=== PATIENT | female | born 1985 | race Caucasian/White ===

== ENCOUNTER 2020-10-23 10:22 | Emergency (ER) | payer OTHER, SELFPAY ==
[2020-10-23 10:42] VITALS: BP 122/77; PULSE 112; RESP 16; TEMP 37.3; O2SAT 98; BMI 23.1
--- NOTE | 2020-10-23 11:14 | ED_ITS ---
HPI - Head Injury General: Chief complaint: Head Injury Stated complaint: Fall/Head Injury Time Seen by Provider: 10/23/20 11:14 Source: patient Mode of arrival: ambulatory Limitations: no limitations History of Present Illness: HPI Narrative: Mrs. Butler is a nice 35-year-old female who comes in complaining of headache, neck pain and facial pain after suffering a fall 3 days ago. She stated she was at home when she tripped and fell landing on her head and face. Since that time she is had progressive more swelling and pain with nausea. States the symptoms are just getting progressively worse. She denies being on blood thinners, antiplatelet agents or anything else. Bright lights and loud sounds make her symptoms worse. Patient states she has never had a headache quite like this before. At the time she was dazed but she does not think she had loss of consciousness. Patient's not tried anything for this other than Tylenol at home which she said helped minimally. Associated symptoms: Reports nausea and neck pain; Deny confusion, syncope, vertigo or vomiting Review of Systems Const: Denies: fever(s), chills, body aches, fatigue, malaise or diaphoresis Eyes: Denies: change in vision, blurry vision, photophobia, eye discomfort, eye discharge, eye redness or yellow eyes ENMT: Denies: throat pain, odynophagia, hoarseness, swelling of lips/tongue, ear or mastoid pain, ear discharge, change in hearing or nasal discharge Card: Denies: chest pain, palpitations, irregular heart rhythm, edema, lightheadedness, syncope, pre-syncope, dyspnea on exertion or orthopnea Resp: Denies: dyspnea, productive cough, non-productive cough, wheezing, hemoptysis or chest congestion GI: Reports: nausea; Denies: abdominal pain, vomiting, hematemesis, coffee ground emesis, heartburn, diarrhea, constipation, GI cramping, hematochezia or melena : Denies: flank pain, dysuria, urinary frequency, urinary urgency or hematuria Musc: Reports: neck pain; Denies: back pain, extremity pain, extremity swelling, joint pain, joint swelling, joint redness, joint warmth or joint stiffness Skin/Breast: Denies: rash, pruritus, erythema, skin pain or skin tenderness Neuro: Reports: headache(s); Denies: numbness in extremities, weakness in extremities, sensory changes, lack of coordination, difficulty walking, dizziness, vertigo, confusion, Slurred speech present or seizure-like activity Angelito/Lymph: Denies: easy bruising, easy bleeding, petechiae, purpura or enlarged lymph nodes All/Imm: Denies: urticaria, throat swelling, tongue swelling, facial swelling or acute wheezing PFSH ED PFSH: Medical History No pertinent past medical history Surgical History History of tonsillectomy and adenoidectomy As a child Family History Mother Hypertension Heart disease Hyperlipidemia Family history of thyroid problem Grandmother Diabetes Maternal grandmother Heart disease Maternal grandmother Stroke Maternal grandmother Family/Other Breast cancer Paternal great aunt Social History Smoking and tobacco status: never smoked Alcohol intake: current Female Reproductive History: Date of last menstrual period: 09/30/20 Physical Exam Const: COMMON NORMALS: no acute distress, patient oriented x3, no limitations and alert GENERAL APPEARANCE: cooperative HENMT: COMMON NORMALS: external ears normal, EAC's normal and Normal external nose present HEAD & SCALP: normal to inspection and other (Swelling and bruising noted to forehead, upper face and scalp. Areas are a) FACE & SINUS: normal facial exam and face symmetric NOSE: Normal external nose present and Normal nares present EXTERNAL EAR: Yes external ears normal EXTERNAL AUDITORY CANAL: EAC's normal MOUTH: Normal oral and palatal mucosa present, lip normal and tongue normal Eye: COMMON NORMALS: Equal, round and reactive pupils present and conjunctivae normal GENERAL EYE: appearance normal, both eyes and all related structures ALIGNMENT: Yes alignment normal PERIORBITAL: periorbital findings normal EYELID: eyelids normal CONJUNCTIVA: Yes conjunctivae normal SCLERA: sclerae normal PUPIL: Yes Equal, round and reactive pupils present Neck/C-Spine: COMMON NORMALS: full ROM, no lymphadenopathy, supple, no meningeal signs and no JVD GENERAL: Yes normal visual inspection and Yes trachea midline Chest: COMMONS NORMALS: normal inspection of the chest and normal palpation of entire chest wall Resp: COMMON NORMALS: normal respiratory effort, No retractions, No use of accessory muscles and clear to auscultation bilaterally EFFORT & INSPECTION: Yes able to speak in complete sentences and Yes symmetric chest movement AUSCULTATION: clear to auscultation bilaterally, no crackles, no rales, no rhonchi and no wheezes Cardio: COMMON NORMALS: no JVD, regular rate, regular rhythm, S1 normal heart sound present and S2 normal heart sound present RATE: regular rate RHYTHM: regular rhythm HEART SOUNDS: S1 normal heart sound present, S2 normal heart sound present, no click, no gallops, no murmurs and no rubs GI: COMMON NORMALS: Soft to palpation and No hepatosplenomegaly present PALPATION: Yes Soft to palpation, No Tenderness to palpation present (GI), No Guarding due to palpation present (GI), No Rigid due to palpation, Yes No hepatosplenomegaly present, No Hernia present, No Palpable mass present and No Pulsatile mass present : COMMON NORMALS: Yes no CVA tenderness BLADDER/KIDNEY EXAM: Yes no CVA tenderness EXTERNAL FEMALE EXAM: No Hernia present Back/Pelvis: COMMON NORMALS: no CVA tenderness, thoracic and lumbar spine normal to inspection, no thoracic nor lumbar tenderness and thoraco-lumbar ROM normal Extremity: COMMON NORMALS: normal to inspection, full ROM, capillary refill normal, no joint enlargement, no clubbing, cyanosis or edema and no calf tenderness Neuro: COMMON NORMALS: patient oriented x3, CN's II-XII intact bilaterally, moves all extremities, no focal motor deficits and no sensory deficits noted SENSORIUM/ORIENTATION: Yes alert MENINGEAL SIGNS: Yes no meningeal signs SPEECH: speech normal Psych: COMMON NORMALS: mental status grossly normal, Normal thought process present, cooperative, normal affect, speech normal and activity/motor behavior normal SPEECH: Yes normal speech THOUGHT PROCESS: Normal thought process present Skin: COMMON NORMALS: no rashes or lesions noted, turgor normal, no jaundice, no petechiae and no mottling GENERAL SKIN EXAM: no rashes or lesions noted and turgor normal Course Vital Signs: Vital signs: Vital Signs Temperature 99.1 F 10/23/20 10:42 Pulse Rate 112 H 10/23/20 10:42 Respiratory Rate 16 10/23/20 10:42 Blood Pressure 122/77 10/23/20 10:42 Pulse Oximetry 98 10/23/20 11:41 MDM - Head Injury MDM Narrative: Medical decision making narrative: Mrs. Butler is a nice 35-year-old female who comes in with a concern of continued headache and nauseousness after a head injury. CT scan revealed no evidence of cervical spine fracture, intracranial hemorrhage or bruising and no facial fractures. Patient is very satisfied and encouraged to hear this. She will continue take Tylenol Motrin at home. He states she has any questions or concerns she will return here or follow-up for further work-up. Imaging Data^: CT Head: Radiologist's impression: [employer] [address] [facility] [place] [address] CT Scan Report Signed Patient: Christelle Butler Unit #: [id number] : 1985 Age/Sex: 35 / F ADM Date: 10/23/20 Loc: ER Room/Bed: Attending Dr: Ordering Provider/Ordering MD: Amanda Osei DO Date of Service: 10/23/20 Procedure(s): CT head wo con* [id number] Accession Number(s): [id number] Report Number: [id number] WS: [id number] CT HEAD NONCONTRAST HISTORY: Fall/injury TECHNIQUE: Contiguous axial imaging performed through the brain in 2.5 mm imaging. Bone and soft tissue windows. Sagittal and coronal reformats reviewed. All CT scans at [facility] use at least one of these dose optimization techniques: automated exposure control; mA and/or kV adjustment per patient size (includes targeted exams where dose is matched to clinical indication); or iterative reconstruction. DLP: 746.29 mGy.cm COMPARISON: None available. No acute intracranial hemorrhage, midline shift or mass effect. No atrophy or prior infarcts or herniation. Ventricles: Normal size with no hydrocephalus. Paranasal sinuses: As visualized are clear. Mastoid air cells: Well pneumatized. Calvarium and scalp: Skull is intact with no soft tissue edema or swelling. CT/CT head wo con* [id number] IMPRESSION: Negative head CT. Dictated By: Pily Bowers DO Signed By: Pily Bowers DO Signed Date/Time: 10/23/20 1142 DD/ 1140 CT facial bone: Radiologist's impression: [facility] [place] [address] CT Scan Report Signed Patient: Christelle Butler Unit #: [id number] : 1985 Age/Sex: 35 / F ADM Date: 10/23/20 Loc: ER Room/Bed: Attending Dr: Ordering Provider/Ordering MD: Amanda Osei DO Date of Service: 10/23/20 Procedure(s): CT facial bones wo con* [id number] Accession Number(s): [id number] Report Number: [id number] WS: [id number] CT FACIAL BONES HISTORY: Fall/injury TECHNIQUE: Images obtained from the supraorbital location through the mandible. Soft tissue and bone windows are reviewed. Coronal and sagittal reformats have also been submitted. DLP: 714.[address] scans at [facility] use at least one of these dose optimization techniques: automated exposure control; mA and/or kV adjustment per patient size (includes targeted exams where dose is matched to clinical indication); or iterative reconstruction. COMPARISON: None available. No facial bone fractures are identified. Nasal bones and zygomatic arches are intact. Orbits and globes are normal. No significant amount of soft tissue edema or laceration. CT/CT facial bones wo con* [id number] IMPRESSION: No facial bone fractures. Dictated By: Pily Bowers DO Signed By: Pily Bowers DO Signed Date/Time: 10/23/20 1144 DD/ 1142 CT cervical spine: Radiologist's impression: [employer] [address] [place] [address]. [place] [address] CT Scan Report Signed Patient: Christelle Butlerit #: [id number] : 1985Acct#:[id number] Age/Sex: 35 / FADM Date: 10/23/20 Loc: ERRoom/Bed: Attending Dr: Ordering Provider/Ordering MD: Amanda Osei DO Date of Service: 10/23/20 Procedure(s): CT cervical spin wo con* [id number] Accession Number(s): [id number] Report Number: [id number] WS: [id number] CT CERVICAL SPINE HISTORY: Fall/injury TECHNIQUE: Contiguous 2.5 mm axial imaging performed through the entire cervical spine. Sagittal and coronal reformats also performed. All CT scans at [facility] use at least one of these dose optimization techniques: automated exposure control; mA and/or kV adjustment per patient size (includes targeted exams where dose is matched to clinical indication); or iterative reconstruction. DLP: 497.41 mGy.cm COMPARISON: None available. Straightening of the normal cervical lordosis. No fractures identified. Craniocervical junction is normal. Lateral masses of C1 and C2 are aligned. Odontoid is intact. No cervical spine fractures are identified. Lung apices are clear. No cervical chain lymph nodes. CT/CT cervical spin wo con* [id number] IMPRESSION: No cervical spine fractures. Dictated By:Pily Bowers DO Signed By:Pily Bowers DOSigned Date/Time:10/23/20 1149 DD/ 1144 Discharge Plan Discharge Patient Disposition: Home Clinical Impression: Concussion without loss of consciousness Qualifiers: Encounter type: initial encounter Qualified Code(s): S06.0X0A - Concussion without loss of consciousness, initial encounter Contusion Qualifiers: Encounter type: initial encounter Contusion area: head Contusion of head detail: scalp Qualified Code(s): S00.03XA - Contusion of scalp, initial encounter Condition: Stable Prescriptions: No Action bismuth subsalicylate [Pepto-Bismol] 262 mg/15 mL suspension 524 mg PO Q1H PRNRF: 0 metronidazole 500 mg tablet 500 mg PO BID Qty: 14 RF: 0 Discharge Orders: Discharge ED (Routine); Ordered 10/23/20 Ordered By: Amanda Osei Referrals: Lupillo Lopez MD [Primary Care Provider] - 4-7 days Discharge Diet: Advance as tolerated Discharge Activity: Resume usual activity Patient Instructions: Concussion (ED), Contusion in Adults (ED) Activity Restrictions/Additional Instructions: Please return to the ER immediately for any of the signs or symptoms listed on your discharge instruction sheets, worsening/changing of your symptoms, you are not getting better as quickly as expected, or for ANY other cause or concerns. Coding Level of Care Code ED Beauty Specialist for Chg Fwd Exam Comprehensive
--- NOTE | 2020-10-23 11:20 | CT_ITS ---
WS: [id number] CT HEAD NONCONTRAST HISTORY: Fall/injury TECHNIQUE: Contiguous axial imaging performed through the brain in 2.5 mm imaging. Bone and soft tiss ue windows. Sagittal and coronal reformats reviewed. All CT scans at [facility] use at ast one of these dose optimization techniques: automated exposure control; mA and/or kV adjustment pe r patient size (includes targeted exams where dose is matched to clinical indication); or iterative r econstruction. DLP: 746.29 mGy.cm COMPARISON: None available. No acute intracranial hemorrhage, midline shift or mass effect. No atrophy or prior infarcts or herniation. Ventricles: Normal size with no hydrocephalus. Paranasal sinuses: As visualized are clear. Mastoid air cells: Well pneumatized. Calvarium and scalp: Skull is intact with no soft tissue edema or swelling. CT/CT head wo con* [id number] IMPRESSION: Negative head CT.
--- NOTE | 2020-10-23 11:20 | CT_ITS ---
WS: [id number] CT CERVICAL SPINE HISTORY: Fall/injury TECHNIQUE: Contiguous 2.5 mm axial imaging performed through the entire cervical spine. Sagittal and coronal reformats also performed. All CT scans at [facility] use at least one of these do se optimization techniques: automated exposure control; mA and/or kV adjustment per patient size (inc ludes targeted exams where dose is matched to clinical indication); or iterative reconstruction. DLP: 497.41 mGy.cm COMPARISON: None available. Straightening of the normal cervical lordosis. No fractures identified. Craniocervical junction is no rmal. Lateral masses of C1 and C2 are aligned. Odontoid is intact. No cervical spine fractures are identified. Lung apices are clear. No cervical chain lymph nodes. CT/CT cervical spin wo con* [id number] IMPRESSION: No cervical spine fractures.
--- NOTE | 2020-10-23 11:20 | CT_ITS ---
WS: [id number] CT FACIAL BONES HISTORY: Fall/injury TECHNIQUE: Images obtained from the supraorbital location through the mandible. Soft tissue and bone windows are reviewed. Coronal and sagittal reformats have also been submitted. DLP: 714.[address] scans at [facility] use at least one of these dose optimization techniques: automat ed exposure control; mA and/or kV adjustment per patient size (includes targeted exams where dose is matched to clinical indication); or iterative reconstruction. COMPARISON: None available. No facial bone fractures are identified. Nasal bones and zygomatic arches are intact. Orbits and glob es are normal. No significant amount of soft tissue edema or laceration. CT/CT facial bones wo con* [id number] IMPRESSION: No facial bone fractures.
[2020-10-23 11:41] VITALS: O2SAT 98
[2020-10-23 12:10] VITALS: BP 117/75; PULSE 84; RESP 18; O2SAT 98
== END 2020-10-23 12:10 | disposition home or self-care (01) ==
PROVIDERS: Emergency Provider Emergency Medicine; PCP Family Medicine
DX: S06.0X0A Concussion without loss of consciousness, initial encounter (principal); S00.03XA Contusion of scalp, initial encounter; W01.0XXA Fall on same level from slipping, tripping and stumbling without subsequent striking against object, initial encounter
CPT/HCPCS: 12345; 70450; 70486; 72125; 99281; 99283

== ENCOUNTER 2022-01-11 11:59 | Emergency (ER) | payer OTHER, SELFPAY ==
[2022-01-11 12:08] VITALS: BP 151/85; PULSE 112; RESP 16; TEMP 36.8; O2SAT 99; BMI 24.9
--- NOTE | 2022-01-11 13:06 | CT_ITS ---
WS: [id number] CT HEAD NONCONTRAST HISTORY: headache TECHNIQUE: Contiguous axial imaging performed through the brain in 2.5 mm imaging. Bone and soft tiss ue windows. Sagittal and coronal reformats reviewed. All CT scans at [facility] use at least one of these dose optimization techniques: automated exposure control; mA and/or kV adjustment per pa tient size (includes targeted exams where dose is matched to clinical indication); or iterative recon struction. DLP: 819.6 mGy.cm COMPARISON: None available. No acute intracranial hemorrhage, midline shift or mass effect. No atrophy or prior infarcts or herniation. Ventricles: Normal size with no hydrocephalus. Paranasal sinuses: As visualized are clear. Mastoid air cells: Well pneumatized. Calvarium and scalp: Skull is intact with no soft tissue edema or swelling. CT/CT head wo con* [id number] IMPRESSION: Negative head CT.
[2022-01-11 13:10] VITALS: BP 146/86; PULSE 95; RESP 16; O2SAT 99
--- NOTE | 2022-01-11 13:15 | ED_ITS ---
HPI - Headache General: Chief Complaint: Headache Stated Complaint: Sharp pains in left side of head, on and off Time Seen by Provider: 01/11/22 12:12 Source: patient Mode of arrival: ambulatory History of Present Illness: 36-year-old female presents emergency room complaining of sharp pain in her head on the left side of her head in the parietal area just above the ear. She states this began today and it comes and goes sharp pain that lasts for a few seconds and then resolves during the time I was with her it happened at least 3 times. She admits to being little anxious about it because last year she had a mild concussion. Symptoms began this morning around 7 AM she has not had any recent falls injuries car accidents anything of that nature. She will often get frontal headaches but these feel significantly different and that she is not noticed any skin rash. She does have any ear pain or tinnitus does not radiate from the ear she not had any tearing of the eye on the left side she is not had any difficulty with swallowing or dribbling she has not had any difficulty with taste or smell. She does not have any pain in the occipital area or in the eye. She has not noticed anything that exacerbates or relieves her symptoms. MD elicited complaint: headache Onset (ago): hour(s) Time: 07:00 Onset description: suddenly Location: left and parietal Severity: moderate Quality & Timing: sharp and intermittent Exacerbating factors: none Relieving factors: nothing Context: occurred at rest Associated symptoms: Deny chest pain, confusion, cough, diaphoresis, eye pain, eye redness, fever(s), lightheadedness, loss of vision, malaise, nausea, neck stiffness, numbness, paresthesias, photophobia, pre-syncope, rash, seizures, short of breath, sound sensitivity, syncope, vomiting or weakness Treatments prior to arrival: none Review of Systems Const: Denies: fever(s), malaise or diaphoresis ENMT: Denies: throat pain, ear or mastoid pain, nasal discharge or nasal congestion Card: Denies: chest pain, lightheadedness, syncope or pre-syncope Resp: Denies: dyspnea, productive cough or non-productive cough GI: Denies: nausea or vomiting : Denies: flank pain, difficulty voiding, dysuria, urinary frequency or urinary urgency Skin/Breast: Denies: rash Neuro: Denies: confusion PFSH ED PFSH: Medical History No pertinent past medical history Surgical History History of tonsillectomy and adenoidectomy As a child Family History Mother Hypertension Heart disease Hyperlipidemia Family history of thyroid problem Grandmother Diabetes Maternal grandmother Heart disease Maternal grandmother Stroke Maternal grandmother Family/Other Breast cancer Paternal great aunt Social History Smoking and tobacco status: never smoked Alcohol intake: current Female Reproductive History: Date of last menstrual period: 09/30/20 Physical Exam Const: COMMON NORMALS: no acute distress GENERAL APPEARANCE: cooperative an d comfortable ORIENTATION/CONSCIOUSNESS: Yes awake, Yes oriented to person, Yes oriented to place and Yes oriented to time HENMT: COMMON NORMALS: normocephalic, atraumatic, hearing grossly normal bilaterally, external ears normal, EAC's normal, TM's normal bilaterally, Normal nasal mucous membranes and turbinates present, moist oral mucous membranes and oropharynx normal HEAD & SCALP: normocephalic and atraumatic NOSE: Normal nasal mucous membranes and turbinates present EXTERNAL EAR: Yes external ears normal EXTERNAL AUDITORY CANAL: EAC's normal TYMPANIC MEMBRANE: TM's normal bilaterally Eye: COMMON NORMALS: Equal, round and reactive pupils present, EOMs intact bilaterally, conjunctivae normal and no scleral icterus CONJUNCTIVA: Yes conjunctivae normal PUPIL: Yes Equal, round and reactive pupils present DIRECT OPHTHALMOSCOPY: No photophobia Neck/C-Spine: COMMON NORMALS: full ROM, no lymphadenopathy, supple and no JVD Lymph: LYMPHATIC: no lymphadenopathy noted and no lymphedema noted Resp: COMMON NORMALS: normal respiratory effort, No retractions, No use of accessory muscles and clear to auscultation bilaterally AUSCULTATION: clear to auscultation bilaterally Cardio: COMMON NORMALS: no JVD, regular rate, regular rhythm and No murmurs present (Cardio) RATE: regular rate RHYTHM: regular rhythm Extremity: COMMON NORMALS: normal to inspection, capillary refill normal, no clubbing, cyanosis or edema, no calf tenderness and no pedal edema Neuro: SENSORIUM/ORIENTATION: Yes oriented to person, Yes oriented to place and Yes oriented to time Skin: COMMON NORMALS: no rashes or lesions noted GENERAL SKIN EXAM: no rashes or lesions noted Course Vital Signs: Vital signs: Vital Signs Temperature 98.2 F 01/11/22 12:08 Pulse Rate 95 01/11/22 13:10 Respiratory Rate 16 01/11/22 13:10 Blood Pressure 146/86 01/11/22 14:43 Pulse Oximetry 97 01/11/22 14:43 MDM - Headache Medical Decision Making Neurologically patient is fully intact. She had these odd very sharp pains in the parietal area that come and go randomly. She has no sign of varicella- zoster. Possible she may be an early Duran's palsy but she has no other symptoms remainder the work-up is negative NIH score is 0 both initially and on repeat. Discussed findings with the patient recommended discharge home we will put her on some prednisone. Additionally put her on amitriptyline 25 nightly give her hydrocodone to use as needed if she has persistent persistent symptoms follow-up with her primary care doc I can refer as appropriate. Medical Records I reviewed the patient's medical records. Lab Data I reviewed the patient's lab results. : 01/11/22 13:27 01/11/22 13:[address] 01/11/22 13:06 IMPRESSION: Negative head CT. Laboratory Results WBC 4.5 10^3/uL (4.0-10.0) 01/11/22 13:27 RBC 5.31 10^6/uL (4.1-5.3) H 01/11/22 13:27 Hgb 15.7 g/dL (11.5-15.3) H 01/11/22 13:27 Hct 48.0 % (37.0-47.0) H 01/11/22 13:27 MCV 90.4 fl (81-99) 01/11/22 13:27 MCH 29.6 pg (28.0-34.0) 01/11/22 13:27 MCHC 32.7 g/dL (30.0-36.0) 01/11/22 13:27 RDW 12.5 % (12.1-15.1) 01/11/22 13:27 Plt Count 360 10^3/cmm (130-400) 01/11/22 13:27 MPV 9.8 fL (7.4-10.4) 01/11/22 13:27 Neut % (Auto) 48.4 % 01/11/22 13: Lymph % (Auto) 36.0 % 01/11/22 13:27 Butts % (Auto) 12.3 % 01/11/22 13: Eos % (Auto) 2.0 % 01/11/22 13:27 Baso % (Auto) 1.1 % 01/11/22 13: Neut # (Auto) 2.16 10^3/uL (1.8-7.7) 01/11/22 13: Lymph # (Auto) 1.6 10^3/uL (0.8-4.8) 01/11/22 13: Butts # (Auto) 0.6 10^3/uL (0.2-0.9) 01/11/22 13: Eos # (Auto) 0.1 10^3/uL (0.0-0.8) 01/11/22 13: Baso # (Auto) 0.1 10^3/uL (0.0-0.1) 01/11/22 13: Nucleated RBC % (auto) 0 % 01/11/22 13: Nucleated RBCs # 0.0 /100WBC 01/11/22 13:27 Sodium 139 mmol/L (136-145) 01/11/22 13:27 Potassium 4.2 mmol/L (3.5-5.1) 01/11/22 13:27 Chloride 102 mmol/L (98-107) 01/11/22 13:27 Carbon Dioxide 26 mmol/L (22-29) 01/11/22 13:27 Anion Gap 15.2 (5-19) 01/11/22 13:27 BUN 12 mg/dL (6-20) 01/11/22 13:27 Creatinine 0.8 mg/dL (0.5-0.9) 01/11/22 13:27 GFR Calculation 82.1 mL/min (90-130) L 01/11/22 13:27 Glucose 89 mg/dL (65-115) 03/11/22 13:27 Calculated Osmolality 287 mOsm/kg (285-295) 01/11/22 13:27 Calcium 9.0 mg/dL (8.5-10.5) 01/11/22 13:27 Discharge Plan Discharge Patient Disposition: Home Clinical Impression: Headache Condition: Stable Prescriptions: New amitriptyline 25 mg tablet 25 mg PO DAILY Qty: 30 0RF prednisone 20 mg tablet 20 mg PO BID 5 Days Qty: 10 0RF hydrocodone-acetaminophen 5-325 mg tablet 1 tab PO Q6H PRN (Reason: pain) Qty: 15 0RF No Action bismuth subsalicylate [Pepto-Bismol] 262 mg/15 mL suspension 524 mg PO Q1H PRN0RF metronidazole 500 mg tablet 500 mg PO BID Qty: 14 0RF metronidazole [Flagyl] 500 mg tablet 500 mg PO BID Qty: 14 0RF Discharge Orders: Discharge ED (Routine); Ordered 01/11/22 Ordered By: Von Flaherty Referrals: Lupillo Lopez MD [Primary Care Provider] - Discharge Diet: Usual diet Discharge Activity: Increase activity as tolerated Patient Instructions: Opioid Safety Activity Restrictions/Additional Instructions: If not improving over the next several days follow-up with primary care for further evaluation. contract project manager will make arrangements for you to establish with a primary care physician Coding Level of Care Code ED Phd Internship for Isra Shankar Exam Comprehensive NIH stroke score NIHSS Level Of Consciousness - 1a: 0 Level Of Consciousness Questions - 1b: Both Correct Level Of Consciousness Commands - 1c: Both Correct Best Gaze - 2: Normal Visual Lees - 3: No Visual Loss Facial Palsy - 4: Normal Motor Arm Right - 5: No Drift Motor Arm Left - 5: No Drift Motor Leg Right - 6: No Drift Motor Leg Left - 6: No Drift Limb Ataxia - 7: Absent Sensory - 8: Normal Best Language - 9: No Aphasia Dysarthia - 10: Normal Extinction And Inattention - 11: 0 Score Total Score: 0
[2022-01-11] MEDS: acetaminophen 1,000 MG/100 ML PIGGYBACK 400 MG IV (13:18)
[2022-01-11] MEDS: ketorolac 30 mg/mL INJ IVP (13:19)
[2022-01-11] MEDS: promethazine 25 mg/mL SDV 1 mL IM (13:20)
[2022-01-11 13:39] LABS: Basophils # 0.1 10^3/uL (0.0-0.1); Basophils % 1.1 %; Eosinophils # 0.1 10^3/uL (0.0-0.8); Hemoglobin 15.7 g/dL (11.5-15.3); Lymphocytes # 1.6 10^3/uL (0.8-4.8); Mean Corpuscular HGB Conc 32.7 g/dL (30.0-36.0); Mean Corpuscular Hemoglobin 29.6 pg (28.0-34.0); Mean Corpuscular Volume 90.4 fl (81-99); Mean Platelet Volume 9.8 fL (7.4-10.4); Monocytes # 0.6 10^3/uL (0.2-0.9); Monocytes % 12.3 %; Neutrophils # 2.16 10^3/uL (1.8-7.7); Neutrophils % 48.4 %; Nucleated Red Blood Cells % 0 %; Platelet Count 360 10^3/cmm (130-400); Red Blood Count 5.31 10^6/uL (4.1-5.3); Red Cell Distribution Width 12.5 % (12.1-15.1); White Blood Count 4.5 10^3/uL (4.0-10.0)
[2022-01-11 14:02] LABS: Anion Gap 15.2 (5-19); Blood Urea Nitrogen 12 mg/dL (6-20); Carbon Dioxide 26 mmol/L (22-29); Chloride 102 mmol/L (98-107); Glomerular Filtration Rate 82.1 mL/min (90-130); Glucose 89 mg/dL (65-115); Osmolality Calculated 287 mOsm/kg (285-295); Potassium 4.2 mmol/L (3.5-5.1); Sodium 139 mmol/L (136-145)
[2022-01-11 14:43] VITALS: BP 146/86; O2SAT 97
== END 2022-01-11 14:57 | disposition home or self-care (01) ==
PROVIDERS: Emergency Provider Family Medicine; PCP Family Medicine
DX: R51.9 Headache, unspecified (principal)
CPT/HCPCS: 70450; 80048; 85025; 96372; 96374; 96375; 99284; J1885; J2550

== ENCOUNTER → 2023-08-21 15:28 | Outpatient (BNVA) | payer OTHER, SELFPAY | PROVIDERS: PCP Family Medicine; Visit Provider Nurse Practitioner Women's Health | DX: N92.0 Excessive and frequent menstruation with regular cycle (principal); Z12.4 Encounter for screening for malignant neoplasm of cervix | CPT/HCPCS: 84439; 84443; 85025; 87624 ==

== ENCOUNTER → 2023-08-28 08:46 | Outpatient (BNVA) | payer OTHER, SELFPAY | PROVIDERS: PCP Family Medicine; Visit Provider Nurse Practitioner Women's Health | DX: N92.6 Irregular menstruation, unspecified (principal); N93.0 Postcoital and contact bleeding; R93.89 Abnormal findings on diagnostic imaging of other specified body structures; D25.9 Leiomyoma of uterus, unspecified; N83.201 Unspecified ovarian cyst, right side | CPT/HCPCS: 76830 ==

== ENCOUNTER 2023-09-23 09:51 | Observation (INO) | payer OTHER, SELFPAY ==
--- NOTE | 2023-09-19 13:21 | ANES.PREANE2 ---
Pre-Anesthetic Assessment Height/Weight: Height 1.63 m Operation Date: 09/23/23 12:25 Proposed Procedures p Total vaginal hysterectomy 75459, R10.2,N94.10,N94.6,D25.9(Not Applicable) - Abhilash Klein MD Familial anesthetic complications: None Was Beta Yessenia taken within 24 hours: N/A Was Clonidine taken within 24 hours: N/A Last intake: > 8hrs Social No alcohol and No tobacco Exam alert, oriented x 3, clear to auscultation bilaterally and regular rate & rhythm Airway Mallampati: Class I Dentition: full Anesthetic Plan ASA status: 1 Anesthesia: General Risk of > 500 ml blood loss (7ml/kg in children): No Medications/Allergies Home Medications Medication Instructions Recorded Confirmed Last Taken Type No Known Home Medications 08/21/23 09/19/23 Unknown History Allergies Allergy/AdvReac Type Severity Reaction Status Date / Time No Known Allergies Allergy Verified 09/12/23 09:19 PFS Anesthesia Medical History Anxiety and depression not on medication; has never been on medication No pertinent past medical history neghx:htn,dm,thyroid,dvt/pe PCP: Jessica (has not seen in many years) Surgical History History of tonsillectomy and adenoidectomy As a child Family History Mother Hypertension Heart disease Hyperlipidemia Family history of thyroid problem Grandmother Diabetes Maternal grandmother Heart disease Maternal grandmother Stroke Maternal grandmother Family/Other Breast cancer Paternal great aunt Data Anesthesia Cardiac Studies: No Data to Display
[2023-09-23] VITALS (19 sets, daily range): BP systolic 93–139; BP diastolic 45–88; PULSE 59–104; RESP 12–24; TEMP 36.2–37.1; O2SAT 97–100
[2023-09-23] MEDS: sodium chloride 0.9% 500 ML IV (06:48)
[2023-09-23] MEDS: scopolamine 1.5 Patch 1 PATCH TRANSDERMA (06:52)
[2023-09-23 07:09] LABS: Basophils # 0.1 10^3/uL (0.0-0.1); Basophils % 0.9 %; Eosinophils # 0.3 10^3/uL (0.0-0.8); Eosinophils % 5.5 %; Hematocrit 41.2 % (36-47); Lymphocytes # 1.8 10^3/uL (0.8-4.8); Lymphocytes % 33.2 %; Mean Corpuscular HGB Conc 34.2 g/dL (30-55); Mean Corpuscular Hemoglobin 29.7 pg (27-33); Mean Corpuscular Volume 86.9 fl (85-98); Mean Platelet Volume 9.6 fL (7.4-10.4); Monocytes # 0.6 10^3/uL (0.2-0.9); Monocytes % 10.8 %; Neutrophils # 2.71 10^3/uL (1.8-7.7); Neutrophils % 49.4 %; Nucleated Red Blood Cells % 0 %; Platelet Count 336 10^3/cmm (157-399); Red Blood Count 4.74 10^6/uL (3.85-5.65); Red Cell Distribution Width 12.2 % (12.1-15.1); White Blood Count 5.48 10^3/uL (3.29-11.43)
[2023-09-23 07:26] LABS: Alanine Aminotransferase 16 U/L (0-33); Albumin Level 4.5 g/dL (3.5-5.2); Alkaline Phosphatase 66 U/L (35-105); Anion Gap 16.6 (5-19); Aspartate Amino Transferase 15 U/L (0-32); Blood Urea Nitrogen 13 mg/dL (6-20); Calcium 9.1 mg/dL (8.5-10.5); Carbon Dioxide 21 mmol/L (22-29); Chloride 103 mmol/L (98-107); Globulin 3.2 g/dL (1.3-4.6); Glomerular Filtration Rate 81.2 mL/min (90-130); Glucose 98 mg/dL (65-115); Osmolality Calculated 282 mOsm/kg (285-295); Potassium 4.6 mmol/L (3.5-5.1); Sodium 136 mmol/L (136-145); Total Bilirubin 0.5 mg/dL (0.15-1.2); Total Protein 7.7 g/dL (6.6-8.7)
--- NOTE | 2023-09-23 07:29 | W.PM.OPSUD ---
Surgery/Procedure H&P Update DATE OF PROCEDURE: September 23, 2023 DATE H&P PERFORMED: 09/12/23 H&P UPDATE INFORMATION: I have reviewed H&P completed within last 30 days, I have examined patient prior to procedure and No changes to prior documentation PREOP DIAGNOSIS: Abnormal uterine bleeding, uterine fibroid, dysmenorrhea PLANNED PROCEDURE: Operation Date: 09/23/23 08:00 Proposed Procedures p Total vaginal hysterectomy 93494, R10.2,N94.10,N94.6,D25.9(Not Applicable) - Abhilash Klein MD
[2023-09-23] MEDS: sodium chloride 0.9% 1,000 ML 30 ML IV (07:34)
[2023-09-23 07:40] LABS: Add Urine Microscopic? YES; Bilirubin Urine Neg (Negative); Blood Urine Neg (Negative); Glucose Urine UA Norm (Normal); Ketones Urine Negative (Negative); Leukocyte Esterase Urine 2+ (Negative); Nitrate Urine Positive (Negative); Protein Urine Neg (Negative); Urine Appearance Cloudy (CLEAR); Urine Color Yellow (Yellow); Urobilinogen Urine Neg (Negative); pH Urine 5 (5-7)
[2023-09-23 07:41] LABS: Add Urine Culture? Yes; Bacteria Urine 3+ /hpf; RBC Urine 0-4 /hpf (0-2); WBC Urine 80-100 /hpf (0-5)
[2023-09-23] MEDS: ceFOXitin 2,000 MG in sodium chloride 0.9% (plus) 50 ML 100 MG IV (07:47)
--- NOTE | 2023-09-23 07:48 | P.ANESUD_ITS ---
Pre-Anesthetic Update Pre-Anesthetic Assessment: Date of Surgery/Procedure: 09/23/23 Preop Kerry gnosis: Abnormal uterine bleeding, uterine fibroid, dysmenorrhea Proposed Procedure: Operation Date: 09/23/23 08:00 Proposed Procedures p Total vaginal hysterectomy 98883, R10.2,N94.10,N94.6,D25.9(Not Applicable) - Abhilash Klein MD Any changes to Pre-Anesthetic Assessment?: No Last Intake: Intake Last Liquid Date 09/22/23 Last Liquid Time 22:00 Last Solid Date 09/22/23 Last Solid Time 19:30 Labs Last 48hrs: Short CBC 09/23/23 Range/Units 06:42 WBC 5.48 (3.29-11.43) 10^ 3/uL Hgb 14.10 (11.27-16.99) g/ dL Hct 41.2 (36-47) % MCV 86.9 (85-98) fl Plt Count 336 (157-399) 10^3/c mm Neut % (Auto) 49.4 % Neut # (Auto) 2.71 (1.8-7.7) 10^3/u L BMP 09/23/23 06:43 Sodium 136 Potassium 4.6 Chloride 103 Carbon Dioxide 21 L BUN 13 Creatinine 0.8 Glucose 98 Calcium 9.1 Liver Function 09/23/23 Range/Units 06:43 Total Bilirubin 0.5 (0.15-1.2) mg/dL AST 15 (0-32) U/L ALT 16 (0-33) U/L Alkaline Phosphata se 66 (35-105) U/L Albumin 4.5 (3.5-5.2) g/dL Urine 09/23/23 Range/Units 06:24 Urine Color Yellow (Yellow) Urine Appearance Cloudy A (CLEAR) Urine pH 5 (5-7) Ur Specific Gravit y 1.010 (1.005-1.030) Urine Protein Neg (Negative) Urine Glucose (UA) Norm (Normal) Urine Ketones Negative (Negative) Urine Nitrate Positive H (Negative) Urine Bilirubin Neg (Negative) Ur Leukocyte Stefany ase 2+ H (Negative) Urine RBC 0-4 H (0-2) /hpf Urine WBC 80-100 H (0-5) /hpf Blood Bank 09/23/23 06:42 Blood Type O Positive Rho(D) Type Rh positive Antibody Screen Negative Vitals: Temperature 97.4 F L 09/23/23 06:39 Temperature Source Temporal Artery S can 09/23/23 06:39 Pulse Rate 104 H 09/23/23 06:39 Respiratory Rate 16 09/23/23 06:39 Blood Pressure 139/88 09/23/23 06:39 Blood Pressure Kaelyn n 105 09/23/23 06:39 Pulse Oximetry 97 09/23/23 06:39 Oxygen Delivery Me thod Room Air 09/23/23 06:39 Exam: Pre-Anes Outpt Exam: alert, oriented x 3, clear to auscultation bilaterally and regular rate & rhythm Cardiac Studies: No Data to Display
[2023-09-23] MEDS: lidocaine-epi 2% 20 mL INJ INJECTION (09:02)
--- NOTE | 2023-09-23 10:04 | PM.OP ---
Operative Report Date of procedure: September 23, 2023 Pre-op diagnosis: Uterine fibroid Heavy menstrual Dysmenorrhea Postcoital bleeding Post-op diagnosis: Same Procedure done: Total vaginal hysterectomy with bilateral salpingectomy Specimens removed/disposition: Uterus Left and right fallopian tube Surgeon: Abhilash Klein MD Estimated blood loss (mL): 150 IV fluids (mL): 1,700 Urine output (mL): 100 Complications: None: Surgery delayed due to instrument tray not having an indicator. Procedure: After informed consent and risks, benefits, indications and alternatives reviewed with the patient was taken to the operating room. The patient was placed in dorsal lithotomy position prepped, and draped in the usual sterile fashion. The pre-procedure timeout verifying the correct patient, procedure, site and side, could not requirements was performed and acknowledge by the OR team. A Harrington catheter was placed. A Bookwalter vaginal retractor was placed into the vagina in usual manner visualize the cervix. Cervix was grasped with a single tooth tenaculum and circumferentially infiltrated with 2% lidocaine with epinephrine. Then cervix was circumferentially incised with bovie and the bladder was dissected off the pubovesical cervical fascia anteriorly with a sponge stick and Metzenbaum scissors. The anterior peritoneal reflection was identified and the anterior cul-de-sac was entered sharply with Metzenbaum scissors. The same procedure was performed posteriorly and a posterior colpotomy was made through the posterior cul-de-sac space without difficulty and the posterior blade of the Bookwalter vaginal retractor was advanced posteriorly into the cul-de-sac. At this time, the left and right uterosacral ligaments were isolated and ligated with 0 Vicryl. The LigaSure device was placed over the uterosacral ligaments on either side and was then used in a serial fashion up through the cardinal ligaments bilaterally cross-clamped, cut, and sealed with the LigaSure device. Finally, the uterine arteries were cross-clamped, cut, sealed and ligated with the LigaSure device. Hemostasis was assured. The broad ligaments were then serially clamped, sealed and cut with the LigaSure device on both sides. Excellent hemostasis was visualized. Both cornua were clamped, sealed and cut with the LigaSure device. Then the pedicles were then suture ligated with excellent hemostasis. The uterus was excised and submitted for pathologic evaluation. No other abnormalities were noted in the pelvic cavity. Then the right side Infundibular ligament was identified. The ureter was confirmed along the pelvic side wall and peristalsis was noted. The LigaSure device was then used to clamp, sealed and transcepted at middistance, again being sure to be clear of the ureter and the fallopian tube was removed. The same process was then repeated on the left side. Good hemostasis was assure on both sides. The peritoneum was then closed in a pursestring fashion with 0 Vicryl suture. The patient was given indigocarmine IV. The vaginal cuff angles were closed with [id number] #0 Vicryl suture on both sides and transfixed with the ipsilateral cardinal and uterosacral ligaments. The remainder of the vaginal cuff was closed with #0 Vicryl in a running locked fashion. At this time, instruments were removed from the vagina at hemostasis assured. Harrington catheter was noted yielding clear odessa urine. The patient was taken out of dorsal lithotomy position and awakened from the general anesthesia. The patient tolerated the procedure well and was taken to the PACU recovery room in a stable condition. Sponge, lap, needle and instruments counts were correct x3.
[2023-09-23] MEDS: HYDROcodone-acetaminophen 5-325 mg Tablet PO ×2 (11:00→22:52)
[2023-09-23] MEDS: dextrose 5%-lactated ringers 1,000 ML 125 ML IV ×2 (11:01→19:05)
--- NOTE | 2023-09-23 13:43 | ANE.PACU2 ---
Inpatient post-anesthesia follow up: Airway intact: Yes Vital signs: Temperature 98.8 F Pulse Rate 74 Respiratory Rate 19 Blood Pressure 113/76 Pulse Oximetry 99 Oxygen Delivery Me thod Room Air Oxygen Flow Rate 6 Fraction of Inspir ed Oxygen Hydration adequate: Yes Nausea and vomiting: No Pain level: 2 Mental status: Baseline
[2023-09-23] MEDS: ketorolac 30 mg/mL INJ IVP ×2 (14:30→20:34)
[2023-09-23] MEDS: docusate sodium 100 mg Capsule PO (17:36)
[2023-09-24] MEDS: ketorolac 30 mg/mL INJ IVP (02:33)
[2023-09-24 05:39] VITALS: BP 107/70; PULSE 74; RESP 16; TEMP 36.9; O2SAT 98
[2023-09-24 05:41] LABS: Hematocrit 32.7 % (36-47); Mean Corpuscular Hemoglobin 29.8 pg (27-33); Mean Corpuscular Volume 90.3 fl (85-98); Mean Platelet Volume 9.7 fL (7.4-10.4); Platelet Count 256 10^3/cmm (157-399); Red Blood Count 3.62 10^6/uL (3.85-5.65); Red Cell Distribution Width 12.5 % (12.1-15.1); White Blood Count 8.56 10^3/uL (3.29-11.43)
[2023-09-24] MEDS: HYDROcodone-acetaminophen 5-325 mg Tablet PO (06:35)
--- NOTE | 2023-09-24 09:02 | P.DS_ITS ---
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 Butler 38-year-old female, with a history of abnormal bleeding, uterine fibroid, dysmenorrhea and postcoital bleeding admitted for planned total vaginal hysterectomy. A total vaginal hysterectomy with bilateral salpingectomy was performed without complications. Overnight observation uneventful. She is afebrile and hemodynamically stable postoperative day 1. Tolerating diet well. Ambulating without difficulty. She was counseled regarding pelvic rest for 6 weeks (no sex, no tampons, no vaginal douches). Return to the emergency room if any fever, increased bleeding or pain. Physical Exam Narrative: GA: Alert and oriented ?3. HEENT: WNL. Heart: Regular rate and rhythm. Lungs: Clear to auscultation bilaterally. Abdomen: Bowel sounds present, minimal tenderness. DIGITAL CONTENT SPECIALIST: Spotting bleeding. Extremities: No edema, no cyanosis, no calves pain. Urinary Catheter Management: [place]: Cath Placed During This Visit: yes, but has since been removed by the nurse Reason for Continuing Indwelling Catheter: Decision to DC Catheter Urinary Catheter Date of Insertion: 09/23/23 Urinary Catheter Time of Insertion: 08:49 Date Urinary Catheter Removed: 09/24/23 Time Urinary Catheter Discontinued: 05:10 History History History 2 Term 2 0 Miscarriages/Ectopic 0 Living Children 2 Discharge Data Studies Completed and Pending Pending at discharge Category Date Time Status Urine Culture Routine Lab 09/23/23 06:24 Received Pathology: Surgical [PTH] Routine Pth 09/23/23 09:38 Received Laboratory Results WBC 8.56 10^3/uL (3.29-11.43) 09/24/23 05:07 RBC 3.62 10^6/uL (3.85-5.65) L 09/24/23 05:07 Hgb 10.80 g/dL (11.27-16.99) L 09/24/23 05:07 Hct 32.7 % (36-47) L 09/24/23 05:07 MCV 90.3 fl (85-98) 09/24/23 05:07 MCH 29.8 pg (27-33) 09/24/23 05:07 MCHC 33.0 g/dL (30-55) 09/24/23 05:07 RDW 12.5 % (12.1-15.1) 09/24/23 05:07 Plt Count 256 10^3/cmm (157-399) 09/24/23 05:07 MPV 9.7 fL (7.4-10.4) 09/24/23 05:07 Neut % (Auto) 49.4 % 09/23/23 06:42 Lymph % (Auto) 33.2 % 09/23/23 06:42 [place] % (Auto) 10.8 % 09/23/23 06:42 Eos % (Auto) 5.5 % 09/23/23 06:42 Baso % (Auto) 0.9 % 09/23/23 06:42 Neut # (Auto) 2.71 10^3/uL (1.8-7.7) 09/23/23 06:42 Lymph # (Auto) 1.8 10^3/uL (0.8-4.8) 09/23/23 06:42 [place] # (Auto) 0.6 10^3/uL (0.2-0.9) 09/23/23 06:42 Eos # (Auto) 0.3 10^3/uL (0.0-0.8) 09/23/23 06:42 Baso # (Auto) 0.1 10^3/uL (0.0-0.1) 09/23/23 06:42 Nucleated RBC % (auto) 0 % 09/23/23 06:42 Nucleated RBCs # 0.0 /100WBC 09/23/23 06:42 Sodium 136 mmol/L (136-145) 09/23/23 06:43 Potassium 4.6 mmol/L (3.5-5.1) 09/23/23 06:43 Chloride 103 mmol/L (98-107) 09/23/23 06:43 Carbon Dioxide 21 mmol/L (22-29) L 09/23/23 06:43 Anion Gap 16.6 (5-19) 09/23/23 06:43 BUN 13 mg/dL (6-20) 09/23/23 06:43 Creatinine 0.8 mg/dL (0.5-0.9) 09/23/23 06:43 GFR Calculation 81.2 mL/min (90-130) L 09/23/23 06:43 Glucose 98 mg/dL (65-115) 09/23/23 06:43 Calculated Osmolality 282 mOsm/kg (285-295) L 09/23/23 06:43 Calcium 9.1 mg/dL (8.5-10.5) 09/23/23 06:43 Total Bilirubin 0.5 mg/dL (0.15-1.2) 09/23/23 06:43 AST 15 U/L (0-32) 09/23/23 06:43 ALT 16 U/L (0-33) 09/23/23 06:43 Alkaline Phosphatase 66 U/L (35-105) 09/23/23 06:43 Total Protein 7.7 g/dL (6.6-8.7) 09/23/23 06:43 Albumin 4.5 g/dL (3.5-5.2) 09/23/23 06:43 Globulin 3.2 g/dL (1.3-4.6) 09/23/23 06:43 Urine Color Yellow (Yellow) 09/23/23 06:24 Urine Appearance Cloudy (CLEAR) A 09/23/23 06:24 Urine pH 5 (5-7) 09/23/23 06:24 Ur Specific [place] 1.010 (1.005-1.030) 09/23/23 06:24 Urine Protein Neg (Negative) 09/23/23 06:24 Urine Glucose (UA) Norm (Normal) 09/23/23 06:24 Urine Ketones Negative (Negative) 09/23/23 06:24 Urine Blood Neg (Negative) 09/23/23 06:24 Urine Nitrate Positive (Negative) H 09/23/23 06:24 Urine Bilirubin Neg (Negative) 09/23/23 06:24 Urine Urobilinogen Neg mg/dL (Negative) 09/23/23 06:24 Ur Leukocyte Esterase 2+ (Negative) H 09/23/23 06:24 Urine RBC 0-4 /hpf (0-2) H 09/23/23 06:24 Urine WBC 80-100 /hpf (0-5) H 09/23/23 06:24 Ur Squamous Epith Cells 5-10 /hpf (0-5) H 09/23/23 06:24 Amorphous Sediment Not Reportable 09/23/23 06:24 Urine Bacteria 3+ /hpf (NONE) H 09/23/23 06:24 Blood Type O Positive 09/23/23 06:42 Rho(D) Type Rh positive 09/23/23 06:42 Antibody Screen Negative 09/23/23 06:42 Vitals Last Vital Signs Temp 98.4 F 09/24/23 05:39 Pulse 74 09/24/23 05:39 Resp 16 09/24/23 05:39 BP 107/70 09/24/23 05:39 Pulse Ox 98 09/24/23 05:39 O2 Del Method Room Air 09/24/23 05:39 O2 Flow Rate 6 09/23/23 10:16 Results Labs OB ([facility]): Blood Type O Positive 09/23/23 Antibody Screen Negative 09/23/23 Hct 32.7 % (36-47) L 09/24/23 Hgb 10.80 g/dL (11.27-16.99) L 09/24/23 Rho(D) Type Rh positive 09/23/23 Plt Count 256 10^3/cmm (157-399) 09/24/23 TSH 1.61 uIU/mL (0.27-4.20) 08/21/23 Free T4 1.25 ng/dL (0.82-1.77) 08/21/23 Micro Urine Specimen 09/23/23 Pap Smear Interpret See note 08/21/23 Discharge Plan Discharge Patient Disposition: Home Condition: Stable Prescriptions: New ibuprofen 800 mg tablet 800 mg PO TID PRN (Reason: pain) Qty: 60 0RF docusate sodium [Colace] 100 mg capsule 100 mg PO BID Qty: 60 0RF acetaminophen 325 mg capsule 325 mg PO Q4H PRN (Reason: fever or pain) Qty: 60 0RF hydrocodone-acetaminophen 5-325 mg tablet 1 tab PO Q4H PRN (Reason: pain) Qty: 30 0RF ferrous sulfate [Iron (ferrous sulfate)] 325 mg (65 mg iron) tablet 325 mg PO BID Qty: 60 0RF Discharge Orders: Discharge Order (Routine); Ordered 09/24/23 Ordered By: Abhilash Klein Referrals: Abhilash Klein MD [Physician] - 10/09/23 8:30 am (Two week check up appointment on October 09 at 8:30am Six week check up appointment on at 3:15pm) Discharge Diet: GI Soft Discharge Activity: Limit activity as instructed Patient Instructions: Vaginal Hysterectomy (DC), OB Discharge Report, OB Food/Drug Interaction Guide, Opioid Safety Activity Restrictions/Additional Instructions: 1. Please call [facility] on next working day to make your post-operative appointment in 2 weeks. 2. Please stay home until you come back to the clinic on first post- hospatilization check up. 3. Please follow instructions on your medications CAREFULLY. 4. If you have abdominal incision, do not cover it unless dressing is necessary because of drainage. OK to shower, but avoid bath. Leave steri-strips until they fall off. If they are still on one week after surgery, you may remove them. 5. If you had vaginal surgery or vaginal repair, Dr. Klein may instruct you to take SITZ bath. 6. Yellow, blood tinged odorous vaginal discharge is usually normal after hysterectomy or vaginal surgeries. 7. No SEXUAL INTERCOURSE, tampons, or douches until you are completely released from the post-operative care. 8. Avoid constipation by eating right and maybe using some Metamucil or Milk of Magnesia. 9. All prescription refills are given during the working hours. Please do no wait till it runs out. Call the clinic at [phone] before your medication runs out. The clinic will get in touch with your doctor to prescribe medications if necessary. 10. Please remain within 40 mile radius from our hospital because emergencies do happen now and then during the post-operative period. 11. If you have stairs at home, take one step at a time slowly and minimize the number of trips. It helps to stay in one floor for the next few days. No lifting except what you can lift by one hand until you are released from the post-operative care. 12. Driving is discouraged until you are well healed. It may be 3-4 weeks before you feel strong enough to drive. You should be able to turn and look through the rear window without pain and you should be able to push the brake pedal very hard without pain before you drive. No fast rules, but SAFETY should be your primary concern. DO NOT drive if you are on sedating medications such as narcotics. 13. Call the clinic (during working hours) to make urgent appointment or go to the Emergency room, if any of the following occurs: i. Vaginal bleeding becomes heavy, more than a period. ii. Incision becomes red and sore, or drains pus. iii. Your TEMPERATURE is over 100.4F or you have chill. iv. IV site becomes red and swollen (a little ``knot?? is usually OK) v. Persistent nausea and vomiting vi. Persistent constipation or diarrhea vii. Rash or allergic reaction to medications. 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
[2023-09-24] MEDS: ibuprofen 800 mg tablet PO (09:08)
[2023-09-24 10:00] VITALS: BP 110/71; PULSE 77; RESP 16; TEMP 36.8; O2SAT 98
== END 2023-09-24 10:13 | disposition home or self-care (01) ==
LOC: OBGYN 09:53
PROVIDERS: Admitting Provider Obstetrics & Gynecology; PCP Family Medicine; Visit Provider Obstetrics & Gynecology
PROC: (CPT 58262; principal; 2023-09-23 08:00)
PROC: (CPT 58700; 2023-09-23 08:00)
DX: D25.9 Leiomyoma of uterus, unspecified (principal); N92.0 Excessive and frequent menstruation with regular cycle; N94.6 Dysmenorrhea, unspecified
CPT/HCPCS: 58262; 36415; 80053; 81001; 81025; 85025; 85027; 86850; 86900; 87077; 87086; 87186; 88307; 96374; 96376; G0378; J0694; J1100; J1170; J1200; J1885; J2250; J2405; J2704; J2710; J3010; J3490; J7030; J7040; J7121